=== PATIENT | male | born 1995 | race Caucasian/White ===

== ENCOUNTER 2019-03-24 17:49 | Emergency (ER) | payer MEDICAID ==
[~2019-03-24] VITALS: Ht 167.6 cm; Wt 61.5 kg
[2019-03-24 18:23] VITALS: Ht 167.6 cm; Wt 61.5 kg
[2019-03-24] MEDS ORDERED: SOD CHLORIDE 0.9% 1,000 ML IV STA (21:23)
--- NOTE | 2019-03-24 21:37 | ERD ---
ER Documentation Chief Complaint Chief Complaint left lower quadrant pain w/movement denies painful urination or BM HPI 23-year-old male with presents with a complaint of lower left quadrant abdominal pain since Sunday morning. Pain is made worse with movement. Denies any treatments. Denies any nausea, fevers, chills vomiting, diarrhea, constipation, dysuria, hematuria. Denies medical problems. ROS All systems reviewed and are negative except as per history of present illness. Medications Home Meds Active Scripts Hydrocodone/Acetaminophen ([place] 5-325 Tablet) 1 Each Tablet, 1 TAB PO Q6H PRN for PAIN, #15 TAB Prov:MIGNON MYERS 03/25/19 Allergies Allergies: Coded Allergies: No Known Allergy (Unverified , 03/24/19) FmHx Family History: No diabetes, No coronary disease, No other Physical Exam Vitals Vital Signs Date Temp Pulse Resp B/P (MAP) Pulse Ox O2 O2 Flow FiO2 Time Delivery Rate 03/24/19 98.0 56 18 116/64 99 18:23 (81) Physical Exam Const: No acute distress Head: Atraumatic Eyes: Normal Conjunctiva ENT: Normal External Ears, Nose and Mouth. Neck: Full range of motion. No meningismus. Resp: Clear to auscultation bilaterally Cardio: Regular rate and rhythm, no murmurs Abd: Tenderness palpation lower left quadrant. Skin: No petechiae or rashes Back: No midline or flank tenderness Ext: No cyanosis, or edema Neur: Awake and alert Psych: Normal Mood and Affect Result Diagram: 03/24/19213003/24/192130 Results 24 hrs Laboratory Tests Test 03/24/19 21:31 White Blood Count 10.5 10^3/ul Red Blood Count 5.34 10^6/ul Hemoglobin 15.9 g/dl Hematocrit 48.5 % Mean Corpuscular Volume 90.8 fl Mean Corpuscular Hemoglobin 29.8 pg Mean Corpuscular Hemoglobin Concent 32.8 g/dl Red Cell Distribution Width 12.2 % Platelet Count 245 10^3/UL Mean Platelet Volume 10.6 fl Immature Granulocytes % 0.300 % Neutrophils % 54.6 % Lymphocytes % 36.7 % Monocytes % 5.5 % Eosinophils % 2.4 % Basophils % 0.5 % Nucleated Red Blood Cells % 0.0 /100WBC Immature Granulocytes # 0.030 10^3/ul Neutrophils # 5.7 10^3/ul Lymphocytes # 3.8 10^3/ul Monocytes # 0.6 10^3/ul Eosinophils # 0.3 10^3/ul Basophils # 0.1 10^3/ul Nucleated Red Blood Cells # 0.0 10^3/ul Urine Color YELLOW Urine Clarity CLEAR Urine pH 7.0 Urine Specific [place] 1.024 Urine Ketones TRACE mg/dL Urine Nitrite NEGATIVE mg/dL Urine Bilirubin NEGATIVE mg/dL Urine Urobilinogen NEGATIVE mg/dL Urine Leukocyte Esterase NEGATIVE [place]/ul Urine Hemoglobin NEGATIVE mg/dL Urine Glucose NEGATIVE mg/dL Urine Total Protein NEGATIVE mg/dl Sodium Level 140 mmol/L Potassium Level 4.1 mmol/L Chloride Level 101 mmol/L Carbon Dioxide Level 29 mmol/L Anion Gap 10 Blood Urea Nitrogen 15 mg/dl Creatinine 0.87 mg/dl Est Glomerular Filtrat Rate mL/min > 60 mL/min Glucose Level 102 mg/dl Calcium Level 9.6 mg/dl Total Bilirubin 0.8 mg/dl Direct Bilirubin 0.00 mg/dl Indirect Bilirubin 0.8 mg/dl Aspartate Amino Transf (AST/SGOT) 36 IU/L Alanine Aminotransferase (ALT/SGPT) 37 IU/L Alkaline Phosphatase 104 IU/L Total Protein 8.6 g/dl Albumin 4.9 g/dl Globulin 3.70 g/dl Albumin/Globulin Ratio 1.32 Lipase 113 U/L Current Medications Medications Dose Sig/[place] Start Time Status Last (Trade) Ordered Route PRN Stop Time Admin Dose Reason Admin Sodium 1,000 ml @ Q1H STAT 03/24/19 DC 03/24/19 Chloride 1,000 mls/hr IV 21:23 21:38 03/24/19 22:22 IV Flush 10 ml STK-MED 03/24/19 DC 03/24/19 (NS 10 ml) ONCE .ROUTE : 23:12 03/24/19 22:32 Sodium 100 ml @ ud STK-MED 03/24/19 DC 03/24/19 Chloride ONCE .ROUTE 22:31 23:13 03/24/19 22:32 Iohexol 150 ml STK-MED 03/24/19 DC 03/24/19 (Omnipaque ONCE .ROUTE 22:31 23:13 300mg/ ml) 03/24/19 22:32 Procedures/MDM DIAGNOSTIC IMAGING REPORT Patient: LYDIA PATEL : 1995 Age: 23 Sex: M MR #: [id number] DOS: 03/25/19 0127 Ordering MD: MIGNON MYERS Location: [facility] Room/Bed: PROCEDURE: US Abdomen. CLINICAL INDICATION: Pain TECHNIQUE: Multiple real-time images were acquired of the patient's abdomen and retroperitoneum utilizing a high resolution transducer. COMPARISON: None FINDINGS: No evidence of cholelithiasis gallbladder wall thickening or pericholecystic fluid. Common bile duct normal limits in size maximal transverse diameter 3.34 mm. No intrahepatic biliary ductal dilation. The liver is normal in size maximal sagittal mention 14.88 cm. Normal liver parenchymal echogenicity without focal lesions. The pancreas is unremarkable. Normal portal venous flow. Right kidney is normal in size maximal sagittal dimension 11.61 cm. Normal right renal parenchymal echogenicity without hydronephrosis intra renal mass or calculus. IMPRESSION: 1. Unremarkable gallbladder without biliary ductal dilation. 2. Unremarkable liver pancreas and right kidney. RPTAT:AAJJ Physician Segun Date Time Electronically viewed and signed by Physician Segun on 03/25/2019 02:12 BM/ CC: MIGNON MYERS [id number] DIAGNOSTIC IMAGING REPORT Patient: LYDIA PATEL : 1995 Age: 23 Sex: M MR #: [id number] DOS: 03/24/19 2123 Ordering MD: MIGNON MYERS Location: [facility] Room/Bed: PROCEDURE: CT Abdomen and Pelvis with contrast. CLINICAL INDICATION: Abdominal pain. TECHNIQUE: CT scan of the abdomen and pelvis with contrast was performed on a multi-detector high-resolution CT scanner. The patient was scanned following the uncomplicated intravenous administration of 90 cc of Omnipaque 300. Coronal and sagittal reformatted images were obtained from the axial source images. Im ages were reviewed on a high-resolution PACS workstation. The total exam CTDI equals 5.5 mGy and the total exam DLP equals 324.1 mGy-cm. DICOM images are available. One or more of the following dose reduction techniques were utilized: 1.) Automated exposure control 2.) Adjustment of the mA +/- kV according to patient's size 3.) Use of iterative reconstruction technique. COMPARISON: None available. FINDINGS: Partially visualized minimal bibasilar pulmonary subsegmental atelectasis, evalu ation degraded by respiratory motion artifact. Heart base appears normal. Systemic vasculature appears grossly normal. Distension of the IVC may reflect congestion or be technical related to Valsalva. No pathologic lymphadenopathy identified by imaging criteria. Mild hepatomegaly without identifiable focal mass lesion. Portal vein enhances normally with nonspecific periportal edema which may reflect hepatitis or congestion. Gallbladder is mildly distended with suggestion of mild wall thickening which may reflect acute cholecystitis. Pancreas, spleen and adrenal glands appear normal. Bowel is unobstructed without free air or focal mesenteric inflammatory change. Appendix appears normal. No identifiable significant diverticulosis nor evidence of acute diverticulitis. Trace dependent pelvic free fluid may be reactive related to enteritis or other inflammatory process. Kidneys perfuse normally with a 2.9 cm simple - appearing right interpolar cyst (axial image 68, coronal image 50). The ureters run unobstructed to an incompletely distended urinary bladder which is suboptimally evaluated on today's exam, with suggestion of moderate diffuse wall thickening which may reflect cystitis or neurogenic bladder. Prostate gland appears normal. Osseous structures are intact. Superficial soft tissues and musculature appear normal. IMPRESSION: 1. Suggestion of moderate diffuse urinary bladder wall thickening, which may be artifactual due to incomplete distension or could reflect cystitis or neurogenic bladder. 2. No nephrolithiasis nor hydronephrosis. Simple - appearing 2.9 cm right interpolar cyst. 3. Mild hepatomegaly with nonspecific periportal edema which may reflect hepat itis or congestion in the presence of a distended IVC. 4. Suggestion of mild gallbladder wall thickening, which may reflect acute cholecystitis. Clinical correlation recommended with consideration for further evaluation with right upper quadrant ultrasound. 5. The bowel is unobstructed without evidence of perforation or abscess, and the appendix appears normal. 6. Trace dependent pelvic free fluid may reflect enteritis or other inflammatory process. RPTAT: HSAN Mey Restrepo Physician Date Time Electronically viewed and signed by Mey Restrepo Physician on 03/25/2019 00:16 xN/ CC: MIGNON MYERS [id number] MDM: Results of CT were discussed my supervising physician Dr. Cottrell and he advised the patient can be discharged with 8-hour follow-up. Stated the patient would not need] this time but rather to be discharged with pain medication. patient's labs are all within normal limits and there are no acute findings shown on CT or ultrasound. I have low suspicion for acute coronary syndrome, AAA, mesenteric ischemia, lower lobe pneumonia, DKA, bowel perforation, cholecystitis, choledocholithiasis, ascending cholangitis, hepatic abscess, pancreatitis, PUD, splenic rupture, diverticulitis, pyelonephritis, nephrolithiasis, appendicitis, [testicular torsion], At this time, patient is stable for discharge and outpatient management. I have instructed the patient to follow-up with his/her primary care physician in 1-2 days. I have discussed with the patient the possibility of needing to see a specialist for further workup and imaging studies if symptoms persist. I have instructed the patient to promptly return to the ER for any new or worsening symptoms including but not limited to increased pain, fever, nausea, vomiting, weakness or LOC. The patient and/or family expressed understanding of and agreement with this plan. All questions were answered. Home care instructions were provided. DISCLAIMER: Inadvertent spelling and grammatical errors are likely due to EHR/dictation software use and do not reflect on the overall quality of patient care. Also, please note that the electronic time recorded on this note does not necessarily reflect the actual time of the patient encounter. . Departure Diagnosis: Primary Impression: Abdominal pain Abdominal location: left lower quadrant Qualified Codes: R10.32 - Left lower quadrant pain Condition: Stable SIGRIDMIGNON BAUER Mar 24, 2019 21:37
[2019-03-24] MEDS ORDERED: IOHEXOL 300MG/ML 150 ML BTL ONE (22:31)
[2019-03-24] MEDS ORDERED: SOD CHLORIDE 0.9% 100 ML ONE (22:31)
[2019-03-25] MEDS ORDERED: HYDR-4011 PO (02:44)
[2019-03-25 03:00] VITALS: BP 99/60; PULSE 72; RESP 16
== END 2019-03-25 03:01 | disposition home or self-care (01) ==
LOC: FTE 17:49
DX: R10.32 Left lower quadrant pain (principal)
CPT/HCPCS: 36415; 74177; 76705; 80053; 81003; 83690; 85025; J7030; Q9967; Z7502; Z7610